=== PATIENT | male | born 1950 | race Caucasian/White ===

== ENCOUNTER → 2020-09-30 09:37 | Outpatient (BNVA) | payer MEDICARE, SELFPAY | PROVIDERS: Family Provider Urology; PCP Family Medicine; Visit Provider Urology | DX: C61 Malignant neoplasm of prostate (principal) | CPT/HCPCS: 81003; 84153 ==

== ENCOUNTER 2021-09-29 09:25 | Outpatient (CLI) | payer MEDICARE, SELFPAY ==
[2021-09-29 10:11] LABS: Prostate Specific AG Urology 18.05 ng/mL (0-4)
== END 2021-09-29 09:26 | disposition home or self-care (01) ==
LOC: LAB 09:28
PROVIDERS: Family Provider Urology; PCP Family Medicine; Visit Provider Urology
DX: R97.20 Elevated prostate specific antigen [PSA] (principal); C61 Malignant neoplasm of prostate
CPT/HCPCS: 36415; 81003; 84153; 99213

== ENCOUNTER 2021-11-16 08:43 | Oncology outpatient (recurring) (ONCR) | payer MEDICARE, SELFPAY ==
--- NOTE | 2021-11-16 09:28 | N.ONRAD NP_ITS ---
Radiation Oncology Consultation Patient Name: Edgar Cuevas Date of : 1950 Date of Service: 11/16/2021 Attending Physician: Rodger Milner M.D. Edgar Cuevas was seen in consultation this morning at the request of Shon Alanis M.D. for consideration of prostate radiotherapy for the management of a previously diagnosed prostate cancer. He initially was identified to have an elevated PSA level (12.7 ng/mL) in June 2017. A TRUS biopsy of the prostate performed on July 13, 2017 diagnosed an adenocarcinoma with a [place] score of 3+2=5 involving 30% of the right lateral base specimen, and a [place] score of 2+2=4 within 30% of the right lateral apex and 10% of the right lateral mid cores. He elected surveillance. In December of 2019, his PSA level was 10.3 ng/mL and he chose to continue active surveillance. During routine follow-up in September, the PSA level was 18.1 ng/mL. A digital rectal exam did not identify any abnormalities. An MRI of the prostate (independently reviewed in [facility]) ordered on October 26, 2021 demonstrated a 4.2 cm x 3.6 cm x 5.2 cm prostate gland (52 cc). Multiple areas of signal abnormality were described within the anterior left transition zone, right transition zone, and right peripheral zone suspicious for prostate carcinoma (PI-RADS 5). He was evaluated for radiotherapy treatment options. I discussed with the patient The National Comprehensive Cancer Network Guidelines recommending biopsy with consideration for abdominopelvic CT scan and nuclear bone scintigraphy depending upon Central score. I also reviewed the radiotherapy treatment options including the possibility of androgen deprivation therapy that would be dependent upon the pathological diagnosis obtained from a repeat biopsy. He was evaluated by Rodger Downs M.D. on November 08, 2021 for surgical options. The patient's medical treatment plan was discussed with Shon Alanis M.D. Signed by: Dr. Rodger Milner 11/16/2021 9:29:48 AM
== END 2021-12-09 23:59 | disposition home or self-care (01) ==
PROVIDERS: PCP Family Medicine; Visit Provider Radiology Radiation Oncology
DX: C61 Malignant neoplasm of prostate (principal)
CPT/HCPCS: 99204

== ENCOUNTER 2022-03-24 07:54 | Oncology outpatient (recurring) (ONCR) | payer MEDICARE, SELFPAY ==
--- NOTE | 2022-03-24 08:39 | N.ONRAD NP_ITS ---
Radiation Oncology Consultation Patient Name: Edgar Cuevas Date of : 1950 Date of Service: 03/24/2022 Attending Physician: Rodger Milner M.D. Edgar Cuevas returned to my office to discuss management options for prostate cancer following a recent prostate biopsy. He initially was identified to have an elevated PSA level (12.7 ng/mL) in June 2017. A TRUS biopsy of the prostate performed on July 13, 2017 diagnosed an adenocarcinoma with a [place] score of 3+2=5 involving 30% of the right lateral base specimen, and a [place] score of 2+2=4 within 30% of the right lateral apex and 10% of the right lateral mid cores. He elected surveillance. In December of 2019, his PSA level was 10.3 ng/mL and he chose to continue active surveillance. During routine follow-up in September, the PSA level was 18.1 ng/mL. A digital rectal exam did not identify any abnormalities. An MRI of the prostate (independently reviewed in [facility]) ordered on October 26, 2021 demonstrated a 4.2 cm x 3.6 cm x 5.2 cm prostate gland (52 cc). Multiple areas of signal abnormality were described within the anterior left transition zone, right transition zone, and right peripheral zone suspicious for prostate carcinoma (PI-RADS 5). An NDH-depwdfkvvb-hpcgza biopsy of the prostate performed on March 14, 2021 diagnosed a prostate adenocarcinoma with a [place] score of 4+3 (grade group 3) involving 1 core (15%), a B[place] score of 3+4 (grade group 2) within the right base, right mid gland, left base, left apex, and lesion 2 identified by MRI, and a [place] score of 3+3 (grade group 1) from the right base, right apex, and lesion 1A (MRI associated). No perineural invasion was present. PSA ordered on March 24, 2022 was 27 ng/mL. The patient was referred for prostate radiotherapy. I discussed with the patient The [place] [employer] on Cancer Staging for prostate cancer and specifically the patient's clinical stage IIIA (T1cN0), high-risk prostate cancer corresponding to his disease. In accordance to NCCN Guidelines, surgery, external beam radiotherapy with androgen deprivation therapy (4-6 months), or radiotherapy with brachytherapy (as per the ASCENDE-RT Trial) are treatment options. I would endorse a 7/2-week course of radiotherapy which will be implemented following neoadjuvant hormonal therapy. I will request a medical oncology consultation for ADT. A planning CT scan with contrast will be acquired prior to implementation of radiation treatment to delineate the clinical target volumes. I reviewed the potential toxicities of pelvic radiotherapy. The patient has verbalized understanding would like to proceed as recommended. The patient???s treatment plan was discussed with Janeth Ferguson M.D. Signed by: Rodger Milner 05/18/2022 3:25:28 PM
[2022-03-24 09:56] LABS: Basophils % 0.3 %; Eosinophils # 0.1 10^3/uL (0.0-0.8); Eosinophils % 1.1 %; Hemoglobin 14.8 g/dL (11.7-16.6); Lymphocytes # 1.3 10^3/uL (0.8-4.8); Lymphocytes % 15.2 %; Mean Corpuscular HGB Conc 32.2 g/dL (30.0-36.0); Mean Corpuscular Hemoglobin 28.5 pg (28.0-34.0); Mean Corpuscular Volume 88.5 fl (80-94); Mean Platelet Volume 9.8 fL (7.4-10.4); Monocytes # 0.5 10^3/uL (0.2-0.9); Monocytes % 5.5 %; Neutrophils # 6.75 10^3/uL (1.8-7.7); Neutrophils % 77.4 %; Nucleated Red Blood Cells % 0 %; Platelet Count 416 10^3/cmm (130-400); Red Cell Distribution Width 13.8 % (12.1-15.1); White Blood Count 8.7 10^3/uL (4.0-10.0)
[2022-03-24 10:23] LABS: Alanine Aminotransferase 13 U/L (0-41); Albumin Level 4.3 g/dL (3.5-5.2); Alkaline Phosphatase 102 U/L (40-130); Anion Gap 13.8 (5-19); Aspartate Amino Transferase 12 U/L (0-40); Blood Urea Nitrogen 15 mg/dL (8-23); Calcium 8.9 mg/dL (8.5-10.5); Carbon Dioxide 25 mmol/L (22-29); Chloride 102 mmol/L (98-107); Globulin 3.1 g/dL (1.3-4.6); Glomerular Filtration Rate 83.4 mL/min (90-130); Glucose 103 mg/dL (65-115); Osmolality Calculated 283 mOsm/kg (285-295); Potassium 4.8 mmol/L (3.5-5.1); Sodium 136 mmol/L (136-145); Testosterone Total 281.3 ng/dL (193-740); Total Bilirubin 0.3 mg/dL (0.15-1.2); Total Protein 7.4 g/dL (6.6-8.7)
== END 2022-04-11 23:59 | disposition home or self-care (01) ==
PROVIDERS: PCP Family Medicine; Visit Provider Radiology Radiation Oncology
DX: C61 Malignant neoplasm of prostate (principal); Z90.89 Acquired absence of other organs; Z79.818 Long term (current) use of other agents affecting estrogen receptors and estrogen levels; Z79.899 Other long term (current) drug therapy
CPT/HCPCS: 36415; 80053; 84153; 84403; 85025; 99215

== ENCOUNTER → 2022-04-03 07:46 | Outpatient (BNVA) | payer MEDICARE, SELFPAY | PROVIDERS: PCP Family Medicine; Visit Provider Internal Medicine Hematology & Oncology | DX: C61 Malignant neoplasm of prostate (principal); Z79.818 Long term (current) use of other agents affecting estrogen receptors and estrogen levels | CPT/HCPCS: 99204 ==

== ENCOUNTER 2022-05-03 08:52 | Oncology outpatient (recurring) (ONCR) | payer MEDICARE, SELFPAY ==
[2022-04-20] MEDS: leuprolide 22.5 mg Kit IM (09:29)
--- NOTE | 2022-05-02 09:51 | NM_ITS ---
WS: [id number] NUCLEAR MEDICINE BONE SCAN Radiopharmaceutical: 24.1 Tc-99m MDP mCi IV Injection site: antecubital Postinjection imaging delay: 1 hr CLINICAL INFORMATION: STAGING COMPARISON: None. FINDINGS: Bone lesions: There are no osseous lesions suspicious for metastatic disease. 2 small punctate foci o f uptake distal sternum along the xiphoid not typical for metastatic disease and may be degenerative. Soft tissue contours: Normal. Kidneys: Normal. Other findings: Degenerative type uptake both AC joints and RIGHT knee joint. NM/NM bone scan whole body* [id number] IMPRESSION: No evidence of osseous metastatic disease.
--- NOTE | 2022-05-03 09:04 | CT_ITS ---
WS: [id number] CT ABDOMEN PELVIS TECHNIQUE: Contrast-enhanced CT of the abdomen and pelvis with coronal and sagittal reformatted image s. CLINICAL INFORMATION: STAGING/MALIGNANT NEOPLASM OF PROSTATE COMPARISON: Bone scan May 02, 2022 DLP: 924.[address] scans at [facility] use at least one of these dose optimization techniques: automated e xposure control; mA and/or kV adjustment per patient size (includes targeted exams where dose is matc hed to clinical indication); or iterative reconstruction. FINDINGS: Diffuse fatty infiltration the liver. Small hepatic cysts in the dome the liver. Normal portal vein a nd splenic vein. Small esophageal hiatal hernia. Normal spleen. Normal pancreatic parenchymal enhance ment. Lung bases are well aerated. Normal caliber abdominal aorta. Celiac and SMA are patent. Adrenal glands are normal. Normal renal enhancement. No hydronephrosis. No hydronephrosis in either kidney. Ureters are decompressed. Enlarged prostate measuring 4.1 CCM. Mild bladder wall thickening. Thickening of the seminal vesicles bilaterally. Sigmoid diverticulosis. No evidence of acute diverticulitis. No high-grade small or obs truction. Normal appendix in the RIGHT lower quadrant. Small fat-containing umbilical hernia. LEFT DAYNA. Disc space narrowing worse L5-S1. Slight retrolisthe sis L4 on L5. CT/CT abdomen pelvis w con* [id number] IMPRESSION: 1. Prostate enlargement with thickening of the seminal vesicles bilaterally. M ild bladder outlet obstruction. 2. No pelvic or inguinal lymphadenopathy. 3. Sigmoid diverticulosis. No evidence of acute diverticulitis. 4. Diffuse fatty infiltration liver. 5. Incidental hepatic cyst measuring 1.1 cm. 6. Small esophageal hiatal hernia. 7. No periaortic or retroperitoneal lymphadenopathy. 8. Small fat-containing umbilical hernia.
[2022-05-03] MEDS: iohexol 350 mg/mL 500 mL Btl (per mL) IV (09:24)
== END 2022-05-09 23:59 | disposition home or self-care (01) ==
LOC: ONCMED 05-08 06:53
PROVIDERS: PCP Family Medicine; Visit Provider Internal Medicine Hematology & Oncology
DX: C61 Malignant neoplasm of prostate (principal); N40.1 Benign prostatic hyperplasia with lower urinary tract symptoms; N13.8 Other obstructive and reflux uropathy; K57.30 Diverticulosis of large intestine without perforation or abscess without bleeding; K76.0 Fatty (change of) liver, not elsewhere classified; K76.89 Other specified diseases of liver; K44.9 Diaphragmatic hernia without obstruction or gangrene; K42.9 Umbilical hernia without obstruction or gangrene
CPT/HCPCS: 74177; 78306; 96372; A9561; J9217; Q9967

== ENCOUNTER 2022-06-07 07:41 | Oncology outpatient (recurring) (ONCR) | payer MEDICARE, SELFPAY ==
[2022-05-10 12:15] LABS: Basophils % 0.4 %; Eosinophils # 0.2 10^3/uL (0.0-0.8); Hematocrit 44.3 % (42.0-52.0); Hemoglobin 14.4 g/dL (11.7-16.6); Lymphocytes # 1.2 10^3/uL (0.8-4.8); Lymphocytes % 15.2 %; Mean Corpuscular HGB Conc 32.5 g/dL (30.0-36.0); Mean Corpuscular Hemoglobin 28.6 pg (28.0-34.0); Mean Corpuscular Volume 87.9 fl (80-94); Mean Platelet Volume 9.9 fL (7.4-10.4); Monocytes # 0.5 10^3/uL (0.2-0.9); Monocytes % 6.1 %; Neutrophils # 5.81 10^3/uL (1.8-7.7); Neutrophils % 75.9 %; Nucleated Red Blood Cells % 0 %; Platelet Count 403 10^3/cmm (130-400); Red Blood Count 5.04 10^6/uL (4.1-5.3); Red Cell Distribution Width 13.9 % (12.1-15.1); White Blood Count 7.7 10^3/uL (4.0-10.0)
[2022-05-10 12:44] LABS: Alanine Aminotransferase 20 U/L (0-41); Albumin Level 4.1 g/dL (3.5-5.2); Alkaline Phosphatase 90 U/L (40-130); Aspartate Amino Transferase 18 U/L (0-40); Blood Urea Nitrogen 22 mg/dL (8-23); Carbon Dioxide 26 mmol/L (22-29); Chloride 101 mmol/L (98-107); Globulin 2.7 g/dL (1.3-4.6); Glomerular Filtration Rate 83.4 mL/min (90-130); Glucose 79 mg/dL (65-115); Osmolality Calculated 288 mOsm/kg (285-295); Sodium 138 mmol/L (136-145); Total Bilirubin 0.2 mg/dL (0.15-1.2); Total Protein 6.8 g/dL (6.6-8.7)
--- NOTE | 2022-06-01 13:11 | ONCRAD EPV_ITS ---
Radiation Oncology Follow-Up Note Patient Name: Edgar Cuevas Date of : 1950 Date of Service: 06/01/2022 Attending Physician: Rodger Milner M.D. Edgar Cuevas returned to my office to discuss radiation therapy. He initially was identified to have an elevated PSA level (12.7 ng/mL) in June 2017. A TRUS biopsy of the prostate performed on July 13, 2017 diagnosed an adenocarcinoma with a [place] score of 3+2=5 involving 30% of the right lateral base specimen, and a [place] score of 2+2=4 within 30% of the right lateral apex and 10% of the right lateral mid cores. He elected surveillance. In December of 2019, his PSA level was 10.3 ng/mL and he chose to continue active surveillance. During routine follow-up in September, the PSA level was 18.1 ng/mL. A digital rectal exam did not identify any abnormalities. An MRI of the prostate (independently reviewed in [facility]) ordered on October 26, 2021 demonstrated a 4.2 cm x 3.6 cm x 5.2 cm prostate gland (52 cc). Multiple areas of signal abnormality were described within the anterior left transition zone, right transition zone, and right peripheral zone suspicious for prostate carcinoma (PI-RADS 5). An CBU-qgtptsxuru-jnqkzp biopsy of the prostate performed on March 14, 2021 diagnosed a prostate adenocarcinoma with a [place] score of 4+3 (grade group 3) involving 1 core (15%), a [place] score of 3+4 (grade group 2) within the right base, right mid gland, left base, left apex, and lesion 2 identified by MRI, and a [place] score of 3+3 (grade group 1) from the right base, right apex, and lesion 1A (MRI associated). No perineural invasion was present. PSA ordered on March 24, 2022 was 27 ng/mL. Androgen deprivation therapy was administered on April 20, 2022 (Eligard ??? cycle 1). I discussed with the patient The [place] [employer] on Cancer Staging for prostate cancer and specifically the patient's clinical stage IIIA (T1cN0), high-risk prostate cancer corresponding to his disease. In accordance to NCCN Guidelines, surgery, external beam radiotherapy with androgen deprivation therapy (4-6 months), or radiotherapy with brachytherapy (as per the ASCENDE-RT Trial) are treatment options. I would endorse a 7/2-week course of radiotherapy which will be implemented following neoadjuvant hormonal therapy. I will request a medical oncology consultation for ADT. A planning CT scan with contrast will be acquired prior to implementation of radiation treatment to delineate the clinical target volumes. I reviewed the potential toxicities of pelvic radiotherapy. The patient has verbalized understanding would like to proceed as recommended. Signed by: Rodger Milner 06/01/2022 1:10:33 PM
--- NOTE | 2022-06-01 13:12 | ONCRAD EPV_ITS ---
Radiation Oncology Follow-Up Note Patient Name: Edgar Cuevas Date of : 1950 Date of Service: 06/01/2022 Attending Physician: Rodger Milner M.D. Edgar Cuevas returned to my office to discuss radiation therapy. He initially was identified to have an elevated PSA level (12.7 ng/mL) in June 2017. A TRUS biopsy of the prostate performed on July 13, 2017 diagnosed an adenocarcinoma with a [place] score of 3+2=5 involving 30% of the right lateral base specimen, and a [place] score of 2+2=4 within 30% of the right lateral apex and 10% of the right lateral mid cores. He elected surveillance. In December of 2019, his PSA level was 10.3 ng/mL and he chose to continue active surveillance. During routine follow-up in September, the PSA level was 18.1 ng/mL. A digital rectal exam did not identify any abnormalities. An MRI of the prostate (independently reviewed in [facility]) ordered on October 26, 2021 demonstrated a 4.2 cm x 3.6 cm x 5.2 cm prostate gland (52 cc). Multiple areas of signal abnormality were described within the anterior left transition zone, right transition zone, and right peripheral zone suspicious for prostate carcinoma (PI-RADS 5). An BQA-agntsaqqwu-xrjnsi biopsy of the prostate performed on March 14, 2021 diagnosed a prostate adenocarcinoma with a [place] score of 4+3 (grade group 3) involving 1 core (15%), a [place] score of 3+4 (grade group 2) within the right base, right mid gland, left base, left apex, and lesion 2 identified by MRI, and a [place] score of 3+3 (grade group 1) from the right base, right apex, and lesion 1A (MRI associated). No perineural invasion was present. PSA ordered on March 24, 2022 was 27 ng/mL. Androgen deprivation therapy was administered on April 20, 2022 (Eligard ??? cycle 1). I discussed with the patient The [place] [employer] on Cancer Staging for prostate cancer and specifically the patient's clinical stage IIIA (T1cN0), high-risk prostate cancer corresponding to his disease. In accordance to NCCN Guidelines, surgery, external beam radiotherapy with androgen deprivation therapy (4-6 months), or radiotherapy with brachytherapy (as per the ASCENDE-RT Trial) are treatment options. I would endorse a 7/2-week course of radiotherapy which will be implemented following neoadjuvant hormonal therapy. A planning CT scan with contrast will be acquired prior to implementation of radiation treatment to delineate the clinical target volumes. I reviewed the potential toxicities of pelvic radiotherapy. The patient has verbalized understanding would like to proceed as recommended. Signed by: Rodger Milner 06/01/2022 1:11:02 PM
--- NOTE | 2022-06-07 | CT_ITS ---
Radiation Therapy Planning CT images; total exam DLP: 1842.37 mGy-cm MTDD
== END 2022-06-09 23:59 | disposition home or self-care (01) ==
PROVIDERS: Internal Medicine Hematology & Oncology; PCP Family Medicine; Visit Provider Radiology Radiation Oncology
DX: C61 Malignant neoplasm of prostate (principal); Z90.89 Acquired absence of other organs; Z79.52 Long term (current) use of systemic steroids; Z79.818 Long term (current) use of other agents affecting estrogen receptors and estrogen levels; Z79.899 Other long term (current) drug therapy; Z51.0 Encounter for antineoplastic radiation therapy
CPT/HCPCS: 36415; 77300; 77301; 77334; 77338; 77470; 80053; 84153; 85025; 99214; 99215

== ENCOUNTER 2022-06-30 08:14 | Oncology outpatient (recurring) (ONCR) | payer MEDICARE, SELFPAY ==
--- NOTE | 2022-06-12 09:06 | ONCRAD TMN_ITS ---
Radiation Oncology Treatment Management Note Patient Name: Edgar Cuevas Date of : 1950 Date of Service: 06/12/2022 Attending Physician: Rodger Milner M.D. 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 He initially was identified to have an elevated PSA level (12.7 ng/mL) in June 2017. A TRUS biopsy of the prostate performed on July 13, 2017 diagnosed an adenocarcinoma with a [place] score of 3+2=5 involving 30% of the right lateral base specimen, and a [place] score of 2+2=4 within 30% of the right lateral apex and 10% of the right lateral mid cores. He elected surveillance. In December of 2019, his PSA level was 10.3 ng/mL and he chose to continue active surveillance. During routine follow-up in September, the PSA level was 18.1 ng/mL. A digital rectal exam did not identify any abnormalities. An MRI of the prostate ordered on October 26, 2021 demonstrated a 4.2 cm x 3.6 cm x 5.2 cm prostate gland (52 cc). Multiple areas of signal abnormality were described within the anterior left transition zone, right transition zone, and right peripheral zone suspicious for prostate carcinoma (PI-RADS 5). An EVH-bstpbxijku-xxknki biopsy of the prostate performed on March 14, 2021 diagnosed a prostate adenocarcinoma with a [place] score of 4+3 (grade group 3) involving 1 core (15%), a [place] score of 3+4 (grade group 2) within the right base, right mid gland, left base, left apex, and lesion 2 identified by MRI, and a [place] score of 3+3 (grade group 1) from the right base, right apex, and lesion 1A (MRI associated). No perineural invasion was present. PSA ordered on March 24, 2022 was 27 ng/mL. Androgen deprivation therapy was administered on April 20, 2022 (Eligard ??? cycle 1). The patient has received 2 Gy of a prescribed 46 Vega to the prostate and regional lymph nodes with an intensity modulated radiotherapy plan utilizing a step and shoot treatment technique. An additional 32 Vega will be delivered to the prostate gland subsequent to the initial [place]. Upon review of systems, he denied any genitourinary complaints related to radiotherapy. On physical examination, the patient weighed 236 lbs. His temperature was 96.8 ???F and the blood pressure was 148/93 mmHg. The pulse was 52 bpm and his respiratory rate was 16. There was no erythema within the treatment [place]. Continue pelvic radiotherapy as prescribed. Signed by: Rodger Milner 06/12/2022 9:04:24 AM
--- NOTE | 2022-06-19 08:56 | ONCRAD TMN_ITS ---
Radiation Oncology Treatment Management Note Patient Name: Egdar Cuevas Date of : 1950 Date of Service: 06/19/2022 Attending Physician: Rodger Milner M.D. 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 He initially was identified to have an elevated PSA level (12.7 ng/mL) in June 2017. A TRUS biopsy of the prostate performed on July 13, 2017 diagnosed an adenocarcinoma with a [place] score of 3+2=5 involving 30% of the right lateral base specimen, and a [place] score of 2+2=4 within 30% of the right lateral apex and 10% of the right lateral mid cores. He elected surveillance. In December of 2019, his PSA level was 10.3 ng/mL and he chose to continue active surveillance. During routine follow-up in September, the PSA level was 18.1 ng/mL. A digital rectal exam did not identify any abnormalities. An MRI of the prostate ordered on October 26, 2021 demonstrated a 4.2 cm x 3.6 cm x 5.2 cm prostate gland (52 cc). Multiple areas of signal abnormality were described within the anterior left transition zone, right transition zone, and right peripheral zone suspicious for prostate carcinoma (PI-RADS 5). An UXH-gasnzrevmg-kpvgdb biopsy of the prostate performed on March 14, 2021 diagnosed a prostate adenocarcinoma with a [place] score of 4+3 (grade group 3) involving 1 core (15%), a [place] score of 3+4 (grade group 2) within the right base, right mid gland, left base, left apex, and lesion 2 identified by MRI, and a [place] score of 3+3 (grade group 1) from the right base, right apex, and lesion 1A (MRI associated). No perineural invasion was present. PSA ordered on March 24, 2022 was 27 ng/mL. Androgen deprivation therapy was administered on April 20, 2022 (Eligard ??? cycle 1). The patient has received 12 Gy of a prescribed 46 Vega to the prostate and regional lymph nodes with an intensity modulated radiotherapy plan utilizing a step and shoot treatment technique. An additional 32 Vega will be delivered to the prostate gland subsequent to the initial [place]. Upon review of systems, he denied any genitourinary complaints. On physical examination, the patient weighed 236 lbs. His temperature was 97.5 ???F and the blood pressure was 148/92 mmHg. The pulse was 50 bpm and his respiratory rate was 16. There was no erythema within the treatment [place]. Continue pelvic radiotherapy as planned. Signed by: Rodger Milner 06/19/2022 8:54:25 AM
--- NOTE | 2022-06-26 08:48 | ONCRAD TMN_ITS ---
Radiation Oncology Treatment Management Note Patient Name: Edgar Cuevas Date of : 1950 Date of Service: 06/26/2022 Attending Physician: Rodger Milner M.D. 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 He initially was identified to have an elevated PSA level (12.7 ng/mL) in June 2017. A TRUS biopsy of the prostate performed on July 13, 2017 diagnosed an adenocarcinoma with a [place] score of 3+2=5 involving 30% of the right lateral base specimen, and a [place] score of 2+2=4 within 30% of the right lateral apex and 10% of the right lateral mid cores. He elected surveillance. In December of 2019, his PSA level was 10.3 ng/mL and he chose to continue active surveillance. During routine follow-up in September, the PSA level was 18.1 ng/mL. A digital rectal exam did not identify any abnormalities. An MRI of the prostate ordered on October 26, 2021 demonstrated a 4.2 cm x 3.6 cm x 5.2 cm prostate gland (52 cc). Multiple areas of signal abnormality were described within the anterior left transition zone, right transition zone, and right peripheral zone suspicious for prostate carcinoma (PI-RADS 5). An KEC-rawyxlzbrl-ruvdew biopsy of the prostate performed on March 14, 2021 diagnosed a prostate adenocarcinoma with a [place] score of 4+3 (grade group 3) involving 1 core (15%), a [place] score of 3+4 (grade group 2) within the right base, right mid gland, left base, left apex, and lesion 2 identified by MRI, and a [place] score of 3+3 (grade group 1) from the right base, right apex, and lesion 1A (MRI associated). No perineural invasion was present. PSA ordered on March 24, 2022 was 27 ng/mL. Androgen deprivation therapy was administered on April 20, 2022 (Eligard ??? cycle 1). The patient has received 22 Gy of a prescribed 46 Vega to the prostate and regional lymph nodes with an intensity modulated radiotherapy plan utilizing a step and shoot treatment technique. An additional 32 Vega will be delivered to the prostate gland subsequent to the initial [place]. Upon review of systems, he described fatigue. On physical examination, the patient weighed 235 lbs. His temperature was 96.3 ???F and the blood pressure was 139/90 mmHg. The pulse was 56 bpm and his respiratory rate was 16. There was no erythema within the treatment [place]. Continue pelvic radiotherapy as prescribed. Signed by: Rodger Milner 06/26/2022 8:47:02 AM
== END 2022-07-03 06:39 | disposition home or self-care (01) ==
PROVIDERS: PCP Family Medicine; Visit Provider Radiology Radiation Oncology
DX: C61 Malignant neoplasm of prostate (principal); Z90.89 Acquired absence of other organs; Z79.52 Long term (current) use of systemic steroids; Z79.818 Long term (current) use of other agents affecting estrogen receptors and estrogen levels; Z79.899 Other long term (current) drug therapy; M25.511 Pain in right shoulder; M25.521 Pain in right elbow
CPT/HCPCS: 77336; 77385; 99024

== ENCOUNTER 2022-07-07 08:10 | Oncology outpatient (recurring) (ONCR) | payer MEDICARE, SELFPAY ==
--- NOTE | 2022-07-03 09:16 | ONCRAD TMN_ITS ---
Radiation Oncology Treatment Management Note Patient Name: Edgar Cuevas Date of : 1950 Date of Service: 07/03/2022 Attending Physician: Rodger Milner M.D. 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 He initially was identified to have an elevated PSA level (12.7 ng/mL) in June 2017. A TRUS biopsy of the prostate performed on July 13, 2017 diagnosed an adenocarcinoma with a [place] score of 3+2=5 involving 30% of the right lateral base specimen, and a [place] score of 2+2=4 within 30% of the right lateral apex and 10% of the right lateral mid cores. He elected surveillance. In December of 2019, his PSA level was 10.3 ng/mL and he chose to continue active surveillance. During routine follow-up in September, the PSA level was 18.1 ng/mL. A digital rectal exam did not identify any abnormalities. An MRI of the prostate ordered on October 26, 2021 demonstrated a 4.2 cm x 3.6 cm x 5.2 cm prostate gland (52 cc). Multiple areas of signal abnormality were described within the anterior left transition zone, right transition zone, and right peripheral zone suspicious for prostate carcinoma (PI-RADS 5). An BEO-vkiaiiokma-jsreyo biopsy of the prostate performed on March 14, 2021 diagnosed a prostate adenocarcinoma with a [place] score of 4+3 (grade group 3) involving 1 core (15%), a [place] score of 3+4 (grade group 2) within the right base, right mid gland, left base, left apex, and lesion 2 identified by MRI, and a [place] score of 3+3 (grade group 1) from the right base, right apex, and lesion 1A (MRI associated). No perineural invasion was present. PSA ordered on March 24, 2022 was 27 ng/mL. Androgen deprivation therapy was administered on April 20, 2022 (Eligard ??? cycle 1). The patient has received 32 Gy of a prescribed 46 Vega to the prostate and regional lymph nodes with an intensity modulated radiotherapy plan utilizing a step and shoot treatment technique. An additional 32 Vega will be delivered to the prostate gland subsequent to the initial [place]. Upon review of systems, he described continued fatigue and intermittent diarrhea. On physical examination, the patient weighed 235 lbs. His temperature was 97 ???F and the blood pressure was 140/90 mmHg. The pulse was 60 bpm and his respiratory rate was 18. There was no erythema within the treatment [place]. Continue pelvic radiotherapy as planned. An OTC anti-diarrheal was recommended. Signed by: Rodger Milner 07/03/2022 9:14:47 AM
== END 2022-07-09 23:59 | disposition home or self-care (01) ==
PROVIDERS: PCP Family Medicine; Visit Provider Radiology Radiation Oncology
DX: C61 Malignant neoplasm of prostate (principal); Z90.89 Acquired absence of other organs; Z79.52 Long term (current) use of systemic steroids; Z79.818 Long term (current) use of other agents affecting estrogen receptors and estrogen levels; Z79.899 Other long term (current) drug therapy; M25.511 Pain in right shoulder; M25.521 Pain in right elbow; Z51.0 Encounter for antineoplastic radiation therapy; R53.83 Other fatigue
CPT/HCPCS: 77014; 77385; 77427; 99213

== ENCOUNTER → 2022-07-13 09:13 | Outpatient (BNVA) | payer MEDICARE, SELFPAY | PROVIDERS: PCP Family Medicine; Visit Provider Nurse Practitioner Family | DX: C61 Malignant neoplasm of prostate (principal) | CPT/HCPCS: 99213 ==

== ENCOUNTER 2022-07-14 08:12 | Oncology outpatient (recurring) (ONCR) | payer MEDICARE, SELFPAY ==
--- NOTE | 2022-07-10 08:57 | ONCRAD TMN_ITS ---
Radiation Oncology Treatment Management Note Patient Name: Edgar Cuevas Date of : 1950 Date of Service: 07/10/2022 Attending Physician: Rodger Milner M.D. 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 He initially was identified to have an elevated PSA level (12.7 ng/mL) in June 2017. A TRUS biopsy of the prostate performed on July 13, 2017 diagnosed an adenocarcinoma with a Bijan score of 3+2=5 involving 30% of the right lateral base specimen, and a [place] score of 2+2=4 within 30% of the right lateral apex and 10% of the right lateral mid cores. He elected surveillance. In December of 2019, his PSA level was 10.3 ng/mL and he chose to continue active surveillance. During routine follow-up in September, the PSA level was 18.1 ng/mL. A digital rectal exam did not identify any abnormalities. An MRI of the prostate ordered on October 26, 2021 demonstrated a 4.2 cm x 3.6 cm x 5.2 cm prostate gland (52 cc). Multiple areas of signal abnormality were described within the anterior left transition zone, right transition zone, and right peripheral zone suspicious for prostate carcinoma (PI-RADS 5). An HBT-lghqzydxkw-dkfwvb biopsy of the prostate performed on March 14, 2021 diagnosed a prostate adenocarcinoma with a Bijan score of 4+3 (grade group 3) involving 1 core (15%), a Bijan score of 3+4 (grade group 2) within the right base, right mid gland, left base, left apex, and lesion 2 identified by MRI, and a Bijan score of 3+3 (grade group 1) from the right base, right apex, and lesion 1A (MRI associated). No perineural invasion was present. PSA ordered on March 24, 2022 was 27 ng/mL. Androgen deprivation therapy was administered on April 20, 2022 (Eligard ??? cycle 1). The patient has received 42 Gy of a prescribed 46 Vega to the prostate and regional lymph nodes with an intensity modulated radiotherapy plan utilizing a step and shoot treatment technique. An additional 32 Vega will be delivered to the prostate gland subsequent to the initial [place]. Upon review of systems, he noted relief from diarrhea with generic Imodium. On physical examination, the patient weighed 237 lbs. His temperature was 96.8 ???F and the blood pressure was 144/90 mmHg. The pulse was 62 bpm and his respiratory rate was 18. There was no erythema within the treatment [place]. Continue pelvic radiotherapy as prescribed. Signed by: Rodger Milner 07/10/2022 8:55:27 AM
[2022-07-13 09:41] LABS: Basophils % 0.4 %; Eosinophils # 0.7 10^3/uL (0.0-0.8); Eosinophils % 14.7 %; Hematocrit 38.3 % (42.0-52.0); Hemoglobin 12.8 g/dL (11.7-16.6); Lymphocytes # 0.3 10^3/uL (0.8-4.8); Lymphocytes % 6.1 %; Mean Corpuscular HGB Conc 33.4 g/dL (30.0-36.0); Mean Corpuscular Hemoglobin 29.5 pg (28.0-34.0); Mean Corpuscular Volume 88.2 fl (80-94); Mean Platelet Volume 9.3 fL (7.4-10.4); Monocytes # 0.5 10^3/uL (0.2-0.9); Monocytes % 10.9 %; Neutrophils # 3.05 10^3/uL (1.8-7.7); Neutrophils % 66.8 %; Nucleated Red Blood Cells % 0 %; Platelet Count 268 10^3/cmm (130-400); Red Blood Count 4.34 10^6/uL (4.1-5.3); Red Cell Distribution Width 14.8 % (12.1-15.1); White Blood Count 4.6 10^3/uL (4.0-10.0)
[2022-07-13 10:06] LABS: Alanine Aminotransferase 19 U/L (0-41); Albumin Level 3.7 g/dL (3.5-5.2); Alkaline Phosphatase 65 U/L (40-130); Anion Gap 12.5 (5-19); Aspartate Amino Transferase 16 U/L (0-40); Blood Urea Nitrogen 19 mg/dL (8-23); Calcium 8.4 mg/dL (8.5-10.5); Carbon Dioxide 27 mmol/L (22-29); Chloride 105 mmol/L (98-107); Globulin 2.2 g/dL (1.3-4.6); Glomerular Filtration Rate 83.4 mL/min (90-130); Glucose 103 mg/dL (65-115); Osmolality Calculated 293 mOsm/kg (285-295); Potassium 4.5 mmol/L (3.5-5.1); Prostate Specific Antigen 0.404 ng/mL (0-4); Sodium 140 mmol/L (136-145); Total Bilirubin 0.3 mg/dL (0.15-1.2); Total Protein 5.9 g/dL (6.6-8.7)
[2022-07-13] MEDS: leuprolide 22.5 mg Kit IM (11:22)
== END 2022-07-14 12:18 | disposition home or self-care (01) ==
PROVIDERS: Internal Medicine Hematology & Oncology; PCP Family Medicine; Visit Provider Radiology Radiation Oncology
DX: Z51.0 Encounter for antineoplastic radiation therapy (principal); C61 Malignant neoplasm of prostate; Z90.89 Acquired absence of other organs; Z79.52 Long term (current) use of systemic steroids; Z79.818 Long term (current) use of other agents affecting estrogen receptors and estrogen levels; Z79.899 Other long term (current) drug therapy
CPT/HCPCS: 36415; 77300; 77336; 77338; 77385; 80053; 84153; 85025; 96402; 99024; 99214; J9217

== ENCOUNTER 2022-08-03 08:08 | Oncology outpatient (recurring) (ONCR) | payer MEDICARE, SELFPAY ==
--- NOTE | 2022-07-17 09:32 | ONCRAD TMN_ITS ---
Radiation Oncology Treatment Management Note Patient Name: Edgar Cuevas Date of : 1950 Date of Service: 07/17/2022 Attending Physician: Rodger Milner M.D. 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 He initially was identified to have an elevated PSA level (12.7 ng/mL) in June 2017. A TRUS biopsy of the prostate performed on July 13, 2017 diagnosed an adenocarcinoma with a Bijan score of 3+2=5 involving 30% of the right lateral base specimen, and a [place] score of 2+2=4 within 30% of the right lateral apex and 10% of the right lateral mid cores. He elected surveillance. In December of 2019, his PSA level was 10.3 ng/mL and he chose to continue active surveillance. During routine follow-up in September, the PSA level was 18.1 ng/mL. A digital rectal exam did not identify any abnormalities. An MRI of the prostate ordered on October 26, 2021 demonstrated a 4.2 cm x 3.6 cm x 5.2 cm prostate gland (52 cc). Multiple areas of signal abnormality were described within the anterior left transition zone, right transition zone, and right peripheral zone suspicious for prostate carcinoma (PI-RADS 5). An XMQ-lofwsehnpu-peksln biopsy of the prostate performed on March 14, 2021 diagnosed a prostate adenocarcinoma with a Bijan score of 4+3 (grade group 3) involving 1 core (15%), a Bijan score of 3+4 (grade group 2) within the right base, right mid gland, left base, left apex, and lesion 2 identified by MRI, and a Bijan score of 3+3 (grade group 1) from the right base, right apex, and lesion 1A (MRI associated). No perineural invasion was present. PSA ordered on March 24, 2022 was 27 ng/mL. Androgen deprivation therapy was administered on April 20, 2022 (Eligard ??? cycle 1) and July 13, 2022 (cycle 2). The patient has received 52 Gy of a prescribed 78 Gy to the prostate and seminal vesicles. Upon review of systems, he did not report any new complaints. On physical examination, the patient weighed 236 lbs. His temperature was 97.1 ???F and the blood pressure was 133/83 mmHg. The pulse was 56 bpm and his respiratory rate was 16. There was a small grade III lesion on the left buttock near the gluteal cleft. Continue pelvic radiotherapy as planned. Signed by: Rodger Milner 07/17/2022 9:30:28 AM
--- NOTE | 2022-07-24 09:00 | ONCRAD TMN_ITS ---
Radiation Oncology Treatment Management Note Patient Name: Edgar Cuevas Date of : 1950 Date of Service: 07/24/2022 Attending Physician: Rodger Milner M.D. Egdar Cuevas is a 71 year-old white male diagnosed with a clinical stage IIIA (T1cN0), high-risk prostate cancer. He initially was identified to have an elevated PSA level (12.7 ng/mL) in June 2017. A TRUS biopsy of the prostate performed on July 13, 2017 diagnosed an adenocarcinoma with a Bijan score of 3+2=5 involving 30% of the right lateral base specimen, and a [place] score of 2+2=4 within 30% of the right lateral apex and 10% of the right lateral mid cores. He elected surveillance. In December of 2019, his PSA level was 10.3 ng/mL and he chose to continue active surveillance. During routine follow-up in September, the PSA level was 18.1 ng/mL. A digital rectal exam did not identify any abnormalities. An MRI of the prostate ordered on October 26, 2021 demonstrated a 4.2 cm x 3.6 cm x 5.2 cm prostate gland (52 cc). Multiple areas of signal abnormality were described within the anterior left transition zone, right transition zone, and right peripheral zone suspicious for prostate carcinoma (PI-RADS 5). An PIZ-gvbpzdesbx-ocnyzr biopsy of the prostate performed on March 14, 2021 diagnosed a prostate adenocarcinoma with a [place] score of 4+3 (grade group 3) involving 1 core (15%), a Bijan score of 3+4 (grade group 2) within the right base, right mid gland, left base, left apex, and lesion 2 identified by MRI, and a Bijan score of 3+3 (grade group 1) from the right base, right apex, and lesion 1A (MRI associated). No perineural invasion was present. PSA ordered on March 24, 2022 was 27 ng/mL. Androgen deprivation therapy was administered on April 20, 2022 (Eligard ??? cycle 1) and July 13, 2022 (cycle 2). The patient has received 62 Gy of a prescribed 78 Gy to the prostate and seminal vesicles. Upon review of systems, he described nocturia (8 times). On physical examination, the patient weighed 232 lbs. His temperature was 96.7 ???F and the blood pressure was 128/84 mmHg. The pulse was 59 bpm and his respiratory rate was 18. There was a small grade II lesion on the left buttock near the gluteal cleft. Continue pelvic radiotherapy as prescribed. I will prescribe Flomax for worsening urinary frequency. Signed by: Rodger Milner 07/24/2022 8:59:56 AM
--- NOTE | 2022-07-31 09:24 | ONCRAD TMN_ITS ---
Radiation Oncology Weekly Treatment Management Patient: Faith Hernández MR#: [id number] : 1950> Attending Physician: Marco A Diaz Date of Service: 07/31/2022 Referring Physician(s) : Eyal Alanis M.D. Diagnosis: C61 - Malignant neoplasm of prostate, Diagnosed 03/14/2022 (Active) Stage IIC, T1c, N0, M0, P>=10<20, G3 Radiotherapy to date: Course: Prostate 2022, Treatment Site: Prostate Ca - Phase 2, Ref. ID: [id number], Energy: 6X, Dose/Fx (cGy): 200, #Fx: / 16, Dose Correction (cGy): 0, Total Dose (cGy): 2,600, Start Date: 07/13/2022, Elapsed Days: 18 Course: Prostate 2022, Treatment Site: Prostate Ca - Phase 1, Ref. ID: [id number], Energy: 6X, Dose/Fx (cGy): 200, #Fx: , Dose Correction (cGy): 0, Total Dose (cGy): 4,600, Start Date: 06/12/2022, End Date: 07/12/2022, Elapsed Days: 30 Reason for visit: The patient is being seen today as part of their regularly scheduled weekly on treatment visits to assess for acute toxicities from radiotherapy. Review of Systems: He just began Flomax with no change in 6 to 7 x nocturia as yet. Flow is ok with minimal occasional pain. Loose stools managed with Imodium BID. Some fatigue. Caring for a 84 yo man with dementia. Modest dizziness on standing since just beginning Flomax. Vital Signs: Performed on 07/31/2022 8:45 AM BMI - 30.172 kg/m2 (high), Height - 74 in, Weight - 235 lbs, Temperature - 97.2 f, Pulse - 50 /min (low), Respiration - 18 /min, O2 Sat - 97 %, Pain - 0, Fatigue - 6 and BP - 122/ 82 mm(hg). Physical Exam: Omitted Imaging: Radiation therapy imaging related to accurate target localization (i.e. KV, MV and CBCT) was reviewed. Appropriate changes, if any, were made to ensure treatment accuracy. Plan: Good tolerance of treatment. Will continue as planned. Completes treatment 08/03/2022. I outlined that sxs will improve following the completion of treatment. Signed by: Marco A Diaz 07/31/2022 9:21:58 AM
--- NOTE | 2022-08-03 11:47 | N.ONRD TS_ITS ---
Radiation Oncology Treatment Summary Patient: Faith>Luana MR#: [id number] : 1950> Age: 71> Sex: Male Dictated by: Marco A Diaz Date of Service: 08/03/2022 Referring Physician(s) : Eyal Alanis M.D. Diagnosis: C61 - Malignant neoplasm of prostate, Diagnosed 03/14/2022 (Active) Stage IIC, T1c, N0, M0, P>=10<20, G3 Radiotherapy to Date: Course: Prostate 2022, Treatment Site: Prostate Ca - Phase 2, Ref. ID: [id number], Energy: 6X, Dose/Fx (cGy): 200, #Fx: 16 / 16, Dose Correction (cGy): 0, Total Dose (cGy): 3,200, Start Date: 07/13/2022, End Date: 08/03/2022, Elapsed Days: 21 Treatment Site: Prostate Ca - Phase 1, Ref. ID: [id number], Energy: 6X, Dose/Fx (cGy): 200, #Fx: 23 / 23, Dose Correction (cGy): 0, Total Dose (cGy): 4,600, Start Date: 06/12/2022, End Date: 07/12/2022, Elapsed Days: 30 Clinical Summary: The patient tolerated RT well. : He had just began Flomax with no change in 6 to 7 x nocturia as yet. Flow is ok with minimal occasional pain. Loose stools managed with Imodium BID. Some fatigue. Caring for a 84 yo man with dementia. Modest dizziness on standing since just beginning Flomax. Plan: End of treatment today. Continue on the above medication Follow up in one month. Signed by: aMrco A Diaz>08/03/2022 11:45:35 AM <<Signature on File>>
== END 2022-08-03 23:59 | disposition home or self-care (01) ==
PROVIDERS: PCP Family Medicine; Visit Provider Radiology Radiation Oncology
DX: C61 Malignant neoplasm of prostate (principal); Z79.899 Other long term (current) drug therapy; Z51.0 Encounter for antineoplastic radiation therapy; Z90.89 Acquired absence of other organs; Z79.52 Long term (current) use of systemic steroids; Z79.818 Long term (current) use of other agents affecting estrogen receptors and estrogen levels; M25.511 Pain in right shoulder; M25.521 Pain in right elbow; R53.83 Other fatigue
CPT/HCPCS: 77014; 77336; 77385; 99213; 99214

== ENCOUNTER 2022-08-31 23:32 | Oncology outpatient (recurring) (ONCR) | payer MEDICARE, SELFPAY ==
--- NOTE | 2022-09-01 09:21 | ONCRAD EPV_ITS ---
Radiation Oncology Follow-Up Note Patient Name: Edgar Cuevas Date of : 1950 Date of Service: 09/01/2022 Attending Physician: Rodger Milner M.D. Edgar Cuevas returned to my office this morning for a routinely scheduled post-radiotherapy appointment. He completed prostate radiotherapy in July for the management of a clinical stage IIIA (T1cN0), high-risk prostate cancer. He initially was identified to have an elevated PSA level (12.7 ng/mL) in June 2017. A TRUS biopsy of the prostate performed on July 13, 2017 diagnosed an adenocarcinoma with a Bijan score of 3+2=5 involving 30% of the right lateral base specimen, and a [place] score of 2+2=4 within 30% of the right lateral apex and 10% of the right lateral mid cores. He elected surveillance. In December of 2019, his PSA level was 10.3 ng/mL and he chose to continue active surveillance. During routine follow-up in September, the PSA level was 18.1 ng/mL. A digital rectal exam did not identify any abnormalities. An MRI of the prostate ordered on October 26, 2021 demonstrated a 4.2 cm x 3.6 cm x 5.2 cm prostate gland (52 cc). Multiple areas of signal abnormality were described within the anterior left transition zone, right transition zone, and right peripheral zone suspicious for prostate carcinoma (PI-RADS 5). An CZU-viofpmwklb-jywmeu biopsy of the prostate performed on March 14, 2021 diagnosed a prostate adenocarcinoma with a Bijan score of 4+3 (grade group 3) involving 1 core (15%), a [place] score of 3+4 (grade group 2) within the right base, right mid gland, left base, left apex, and lesion 2 identified by MRI, and a B[place] score of 3+3 (grade group 1) from the right base, right apex, and lesion 1A (MRI associated). No perineural invasion was present. PSA ordered on March 24, 2022 was 27 ng/mL. Androgen deprivation therapy was administered on April 20, 2022 (Eligard ??? cycle 1) and July 13, 2022 (cycle 2). Pelvic radiation therapy was delivered between the dates June 12, 2022 through August 03, 2022. A prescribed dose of 78 Gy was delivered in 39 fractions encompassing 53 elapsed days. On review of systems, he described low energy and vasomotor symptoms. On physical examination, the patient weighed 240 pounds. The temperature is 96.9???F and the blood pressure was 132/83 mmHg. The pulse was 60 bpm and his respiratory rate was 18 breaths per minute. Genitourinary exam was deferred. In summary, Mr. Cuevas returned for a routine post-radiotherapy follow-up. He will continue ADT as prescribed by his medical oncologist. Signed by: Dr. Rodger Milner 09/01/2022 9:20:12 AM
== END 2022-09-08 23:59 | disposition home or self-care (01) ==
LOC: ONCMED 23:33
PROVIDERS: PCP Family Medicine; Visit Provider Radiology Radiation Oncology
DX: C61 Malignant neoplasm of prostate (principal); Z79.899 Other long term (current) drug therapy; Z51.0 Encounter for antineoplastic radiation therapy; Z90.89 Acquired absence of other organs; Z79.52 Long term (current) use of systemic steroids; Z79.818 Long term (current) use of other agents affecting estrogen receptors and estrogen levels; M25.511 Pain in right shoulder; M25.521 Pain in right elbow; R53.83 Other fatigue
CPT/HCPCS: 77336; 99024

== ENCOUNTER 2022-10-05 09:41 | Oncology outpatient (recurring) (ONCR) | payer MEDICARE, SELFPAY ==
[2022-10-05 10:20] VITALS: BP 133/79; PULSE 70; RESP 18; TEMP 36.4; O2SAT 98
[2022-10-05 10:35] LABS: Basophils % 0.6 %; Eosinophils # 0.3 10^3/uL (0.0-0.8); Eosinophils % 5.8 %; Hematocrit 37.2 % (42.0-52.0); Lymphocytes # 0.5 10^3/uL (0.8-4.8); Mean Corpuscular HGB Conc 32.3 g/dL (30.0-36.0); Mean Corpuscular Hemoglobin 30.2 pg (28.0-34.0); Mean Corpuscular Volume 93.5 fl (80-94); Mean Platelet Volume 9.6 fL (7.4-10.4); Monocytes # 0.3 10^3/uL (0.2-0.9); Monocytes % 7.3 %; Neutrophils # 3.55 10^3/uL (1.8-7.7); Neutrophils % 75.9 %; Nucleated Red Blood Cells % 0 %; Platelet Count 275 10^3/cmm (130-400); Red Blood Count 3.98 10^6/uL (4.1-5.3); Red Cell Distribution Width 13.3 % (12.1-15.1); White Blood Count 4.7 10^3/uL (4.0-10.0)
[2022-10-05 11:17] LABS: Alanine Aminotransferase 21 U/L (0-41); Alkaline Phosphatase 78 U/L (40-130); Anion Gap 14.8 (5-19); Aspartate Amino Transferase 14 U/L (0-40); Blood Urea Nitrogen 20 mg/dL (8-23); Calcium 9.1 mg/dL (8.5-10.5); Carbon Dioxide 25 mmol/L (22-29); Chloride 104 mmol/L (98-107); Glucose 108 mg/dL (65-115); Osmolality Calculated 291 mOsm/kg (285-295); Potassium 4.8 mmol/L (3.5-5.1); Prostate Specific Antigen 0.036 ng/mL (0-4); Sodium 139 mmol/L (136-145); Total Bilirubin 0.2 mg/dL (0.15-1.2)
[2022-10-05 11:19] LABS: Testosterone Total < 2.5 ng/dL (193-740)
[2022-10-05] MEDS: leuprolide 22.5 mg Kit IM (12:09)
[2022-10-05 12:15] VITALS: BP 135/82; PULSE 56; RESP 16; TEMP 35.9
== END 2022-10-09 23:59 | disposition home or self-care (01) ==
PROVIDERS: Nurse Practitioner Family; PCP Family Medicine; Visit Provider Internal Medicine Hematology & Oncology
DX: C61 Malignant neoplasm of prostate (principal); Z90.89 Acquired absence of other organs; Z79.52 Long term (current) use of systemic steroids; Z79.818 Long term (current) use of other agents affecting estrogen receptors and estrogen levels
CPT/HCPCS: 36415; 80053; 84153; 84403; 85025; 96401; 99214; J9217